=== PATIENT | female | born 1995 | race Caucasian/White ===

== ENCOUNTER 2017-01-17 10:45 | Inpatient (IN) | payer BC, MEDICAID ==
[~2017-01-17] VITALS: Ht 157.5 cm; Wt 105.0 kg
[~2017-01-17 10:45] MED LIST: AMOXICILLIN 50500 MG PO; BCP TD; PROVENTIL0.09 MG/A1 IH; RT ADVAIR 128 DISKUS IH; VENTOLIN0.09 MG IH
[2017-02-15] VITALS (8 sets, daily range): BP systolic 128–146; BP diastolic 61–74; PULSE 93–113; TEMP 98.3–98.7
[2017-02-15 19:41] LABS: BASO # 0.1 (0.0-0.2); BASO % 0.4 % (0.0-2.0); EOS # 0.2 (0.0-0.7); EOS % 1.4 % (0-4.0); GRAN # 11.2 (1.4-6.5); GRAN % 78.7 % (42.2-75.2); LYMPH % 14.1 % (20.0-51.0); MEAN CELL VOLUME 92 fl (80.0-100.0); MEAN CORPUSCULAR HGB CONC 33 g/dl (33.0-37.0); MEAN PLATELET VOLUME 12.7 fl (7.4-10.4); MONO # 0.7 (0.1-0.6); PLATELET COUNT 218 K/mm3 (130-400); RED BLOOD COUNT 3.79 M/mm3 (4.10-5.30); REDCELL DISTRIBUTION WIDTH-CV 14.3 % (11.5-14.5)
[2017-02-15 19:42] LABS: HEMOGLOBIN 11.7 g/dl (12.5-16.0); MEAN CORPUSCULAR HEMOGLOBIN 31 pg (27.0-31.0)
[2017-02-15 20:21] LABS: ALBUMIN 3.7 gm/dL (3.5-5.0); BILIRUBIN,TOTAL 0.2 mg/dL (0.0-1.0); CREATININE, serum 0.66 mg/dL (0.52-1.25); POTASSIUM 3.8 mmol/L (3.4-5.0); TOTAL PROTEIN 7.3 gm/dL (6.4-8.2)
[2017-02-15] MEDS ORDERED: ATARAX 25MG25 MG/TAB PO (20:49)
[2017-02-15] MEDS ORDERED: TRANDATE 100MG100 MG PO (20:50)
[2017-02-16] VITALS (63 sets, daily range): BP systolic 100–170; BP diastolic 49–96; PULSE 54–123; TEMP 98.1–98.7
[2017-02-17] VITALS (33 sets, daily range): BP systolic 114–162; BP diastolic 40–84; PULSE 77–107; TEMP 97.8–98.6
[2017-02-18 08:07] LABS: HEMATOCRIT 27.9 % (37.0-47.0); HEMOGLOBIN 9.2 g/dl (12.5-16.0)
[2017-02-18 09:00] VITALS: BP 134/59; PULSE 85; TEMP 97.4
[2017-02-18 16:30] VITALS: BP 129/58; PULSE 77; TEMP 97.5
[2017-02-18 21:15] VITALS: BP 127/54; PULSE 85; TEMP 98.3
[2017-02-19 06:45] VITALS: BP 132/61; PULSE 88; TEMP 98.5
[2017-02-19] MEDS ORDERED: FERROUS SU325 MG/TAB PO (08:43)
[2017-02-19] MEDS ORDERED: IBU600 MG PO (08:44)
[2017-02-19] MEDS ORDERED: PERCOCET 325 MG1 TA2 PO (08:44)
[2017-02-19 16:00] VITALS: BP 136/56; PULSE 76; TEMP 98.1
[2017-02-19 20:00] VITALS: BP 133/68; PULSE 84; TEMP 98
[2017-02-20 08:24] VITALS: BP 131/68; PULSE 89; TEMP 97.6
[2017-02-20 16:27] VITALS: BP 125/71; PULSE 70; TEMP 98.3
== END 2017-02-20 18:00 | disposition home or self-care (01) | DRG 765 ==
LOC: LDR 02-15 06:53 → OB 02-15 18:06 → LDR 02-15 18:30 → OB 02-17 06:40 → LDR 02-22 10:44
PROVIDERS: Obstetrics & Gynecology
PROC: 10D00Z1 Extraction of Products of Conception, Low, Open Approach (ICD-10-PCS; principal; 2017-02-17)
PROC: 3E033VJ Introduction of Other Hormone into Peripheral Vein, Percutaneous Approach (ICD-10-PCS; 2017-02-17)
DX: O13.4 Gestational [pregnancy-induced] hypertension without significant proteinuria, complicating childbirth (principal); D62 Acute posthemorrhagic anemia; O99.02 Anemia complicating childbirth; O62.1 Secondary uterine inertia; O99.334 Smoking (tobacco) complicating childbirth; F17.210 Nicotine dependence, cigarettes, uncomplicated; Z3A.39 39 weeks gestation of pregnancy; Z37.0 Single live birth
CPT/HCPCS: J0690; J1885; J2270; J2405; J2590; J2704; J3010; J7120

== ENCOUNTER → 2017-05-17 | Outpatient (CLI) | payer BC, MEDICAID ==
[~2017-05-17] MED LIST changes: +ATARAX 25MG25 MG/TAB PO; +FERROUS SU325 MG/TAB PO; +IBU600 MG PO; +PERCOCET 325 MG1 TA2 PO; +TRANDATE 100MG100 MG PO
== END ==
LOC: OLC 14:13
DX: Z39.1 Encounter for care and examination of lactating mother (principal); Z71.89 Other specified counseling

== ENCOUNTER 2018-05-10 14:25 | Emergency (ER) | payer MEDICAID ==
[~2018-05-10] VITALS: Ht 154.9 cm; Wt 96.8 kg
[2018-05-10 14:44] VITALS: TEMP 98.9
[2018-05-10] MEDS ORDERED: ATARAX 25MG25 MG/TAB PO (14:58)
[2018-05-10 15:49] LABS: BASO # 0.1 (0.0-0.2); BASO % 0.7 % (0.0-2.0); EOS # 0.3 (0.0-0.7); EOS % 2.9 % (0-4.0); GRAN # 6.7 (1.4-6.5); GRAN % 65.2 % (42.2-75.2); HEMATOCRIT 38.3 % (37.0-47.0); LYMPH # 2.6 (1.2-3.4); LYMPH % 25.4 % (20.0-51.0); MEAN CELL VOLUME 90 fl (80.0-100.0); MEAN CORPUSCULAR HEMOGLOBIN 30 pg (27.0-31.0); MEAN CORPUSCULAR HGB CONC 34 g/dl (33.0-37.0); MONO # 0.6 (0.1-0.6); MONO % 5.5 % (1.7-9.3); PLATELET COUNT 287 K/mm3 (130-400); RED BLOOD COUNT 4.27 M/mm3 (4.10-5.30); REDCELL DISTRIBUTION WIDTH-CV 11.9 % (11.5-14.5)
[2018-05-10 16:24] LABS: BILIRUBIN,TOTAL 0.2 mg/dL (0.0-1.0); CALCIUM 9.4 mg/dL (8.4-10.2); CREATININE, serum 0.62 (0.52-1.25); TOTAL PROTEIN 7.5 gm/dL (6.4-8.2)
[2018-05-10 17:20] VITALS: BP 142/84; PULSE 72
== END 2018-05-10 17:22 | disposition home or self-care (01) ==
LOC: COL.ER 14:25
PROVIDERS: Physician Assistant
DX: R06.02 Shortness of breath (principal); F41.9 Anxiety disorder, unspecified; J45.909 Unspecified asthma, uncomplicated; Z79.51 Long term (current) use of inhaled steroids; Z98.890 Other specified postprocedural states

== ENCOUNTER 2018-05-17 22:39 | Emergency (ER) | payer MEDICAID ==
[~2018-05-17] VITALS: Ht 154.9 cm; Wt 96.4 kg
[2018-05-17 22:51] VITALS: TEMP 97.7
[2018-05-18 02:00] VITALS: BP 128/76; PULSE 76
== END 2018-05-18 02:00 | disposition home or self-care (01) ==
LOC: COL.ER 22:39
DX: J02.9 Acute pharyngitis, unspecified (principal); J30.2 Other seasonal allergic rhinitis; F41.9 Anxiety disorder, unspecified; J45.909 Unspecified asthma, uncomplicated; F17.210 Nicotine dependence, cigarettes, uncomplicated; Z79.51 Long term (current) use of inhaled steroids
CPT/HCPCS: J8540

== ENCOUNTER 2020-05-29 15:02 | Outpatient (CLI) | payer MEDICAID ==
[~2020-05-29] VITALS: Ht 157.5 cm; Wt 89.1 kg
--- NOTE | 2020-05-29 15:15 | NUR ---
1515-G3L1 26 Week patient to unit with complaints of lower back pain and burning and swelling in vagina. Patient reports just finishing up 6 week treatment for BV. Reports having had BV 4 times this . Assisted to gown and placed on EFM. FHR reactive. VSS, SVE by this RN closed and thick. External labia without reddness, inner labia reddened. Updated Dr. Blancas who is on unit. Orders to obtain reactive strip and encourage to treat pain at home with sitz baths and tylenol and allow treatment to run its full course MD reports can take up to a week after final dosing. Updtaed patient and encouraged to keep all regular OB visits. 1551-Patient off EFM. Reviewed discharge instructions with patient and answered questions. 1605-Ambulatory off unit.
[2020-05-29 15:30] VITALS: BP 118/58; PULSE 94; TEMP 98.1
[2020-05-29] MEDS ORDERED: PRENATAL TABLET PO (15:30)
[2020-05-29] MEDS ORDERED: ASPIRIN 81M81 MG/TA2 PO (15:30)
[2020-05-29] MEDS ORDERED: PROBIOTIC ACID1 EAC3 PO (15:31)
[2020-05-29] MEDS ORDERED: PROAIR HFA0.09 MG/AC IH (15:31)
[2020-05-29] MEDS ORDERED: PRILOSEC 20MG20 MG PO (15:32)
== END 2020-05-29 16:05 | disposition home or self-care (01) ==
LOC: LDRO 15:02
DX: O26.892 Other specified pregnancy related conditions, second trimester (principal); R10.2 Pelvic and perineal pain; Z3A.28 28 weeks gestation of pregnancy

== ENCOUNTER 2020-07-23 16:10 | Outpatient (CLI) | payer MEDICAID ==
[~2020-07-23] VITALS: Ht 157.5 cm; Wt 92.7 kg
[~2020-07-23 16:10] MED LIST changes: +ASPIRIN 81M81 MG/TA2 PO; +PRENATAL TABLET PO; +PRILOSEC 20MG20 MG PO; +PROAIR HFA0.09 MG/AC IH; +PROBIOTIC ACID1 EAC3 PO
[2020-07-23 16:45] VITALS: BP 116/69; PULSE 80; TEMP 97.7
--- NOTE | 2020-07-23 17:56 | NUR ---
FHT STRIP: DIFFICULTY TRACING FHT FROM ~6176-0616 DUE TO MOVEMENT. RN AT BS ADJUSTING EXTERNAL US AND MOVEMENT AUDIBLE. 1730 STRIP: BROKEN STRIP NOTED DUE TO MOVEMENT.
--- NOTE | 2020-07-23 17:58 | NUR ---
TRIAGE NOTE: PT. ARRIVED ONTO [facility] UNIT AMBULATORY WITH NO DIFFICULTIES BUT DID LOOK UNCOMFORTABLE. PT ESCORTED TO [facility] WITH THIS RN AND CHANGED INTO GOWN AND WAS PLACED ON MONITORS. VITAL SIGNS WERE OBTAINED AND WNL (SEE CHART) AND SVE WAS .5/TH/HI. ADMISSION TABS WERE COMPLETED WITH PT AND PT. HAD NO QUESTIONS. PHONE CALL WAS PLACED TO DR. HORNER FOR DR. CAPUTO, AND STATED TO MONITOR STRIP FOR AN HOUR AND RECHECK. IF UNCHANGED, PT. CAN GO HOME.
== END 2020-07-23 18:40 | disposition home or self-care (01) ==
LOC: LDRO 16:10
DX: O62.9 Abnormality of forces of labor, unspecified (principal); Z3A.00 Weeks of gestation of pregnancy not specified

== ENCOUNTER 2020-08-20 05:29 | Inpatient (IN) | payer MEDICAID ==
[2020-08-20] VITALS (18 sets, daily range): BP systolic 103–133; BP diastolic 40–66; PULSE 79–113; TEMP 97.5–98.6
[~2020-08-20] VITALS: Ht 157.5 cm; Wt 97.7 kg
[2020-08-20 06:30] LABS: BASO # 0.1 (0.0-0.2); BASO % 0.4 % (0.0-2.0); EOS # 0.1 (0.0-0.7); EOS % 1.2 % (0-4.0); GRAN # 8.8 (1.4-6.5); GRAN % 73.9 % (42.2-75.2); HEMOGLOBIN 10.7 g/dl (12.5-16.0); LYMPH # 2.1 (1.2-3.4); LYMPH % 17.8 % (20.0-51.0); MEAN CELL VOLUME 89 fl (80.0-100.0); MEAN CORPUSCULAR HEMOGLOBIN 29 pg (27.0-31.0); MEAN CORPUSCULAR HGB CONC 33 g/dl (33.0-37.0); MEAN PLATELET VOLUME 11.9 fl (7.4-10.4); MONO # 0.8 (0.1-0.6); MONO % 6.4 % (1.7-9.3); PLATELET COUNT 181 K/mm3 (130-400); RED BLOOD COUNT 3.64 M/mm3 (4.10-5.30); REDCELL DISTRIBUTION WIDTH-CV 12.8 % (11.5-14.5)
--- NOTE | 2020-08-20 06:30 | NUR ---
39.6, G3L1 here for scheduled repeat section. Report received from Paula STEIN. This RN to bedside and reviews POC. Assessment completed. Abdominal prep per orders. IVF noted to be infusing well through right wrist IV.
[2020-08-20 06:36] LABS: HEMATOCRIT 32.5 % (37.0-47.0)
[2020-08-20] MEDS ORDERED: SLOW FE142 MG PO (06:39)
[2020-08-21 01:15] VITALS: BP 131/61; PULSE 91; TEMP 98.1
[2020-08-21 07:03] LABS: HEMOGLOBIN 10.2 g/dl (12.5-16.0)
[2020-08-21 07:20] VITALS: BP 124/65; PULSE 71; TEMP 97.7
[2020-08-21 07:21] LABS: HEMATOCRIT 30.9 % (37.0-47.0)
--- NOTE | 2020-08-21 12:25 | NUR ---
Striper Spray Gun stopped by offered prayer and congrats to patient.
[2020-08-21 16:35] VITALS: BP 115/52; PULSE 74; TEMP 97.3
--- NOTE | 2020-08-21 18:55 | NUR ---
notified pt of discussion with Dr. Domingo concerning use of friend's breastmilk for supplementation. Donor milk should be processed and tested prior to use, because this milk is from a friend we don't recommend its use. If you choose to use it you would have to accept responsibility for any poor outcome. Pt verbalized understanding and states this is only intending as a back up plan if necessary as she would like to avoid using formula. Frozen donor milk labeled with pt sticker and placed in freezer in the [facility].
[2020-08-21 20:00] VITALS: BP 126/60; PULSE 72; TEMP 97.6
[2020-08-22 08:50] VITALS: BP 130/56; PULSE 85; TEMP 97.7
[2020-08-22] MEDS ORDERED: PERCOCET 325 MG1 TA2 PO (09:42)
[2020-08-22] MEDS ORDERED: IBU600 MG PO (09:42)
== END 2020-08-22 11:20 | disposition home or self-care (01) | DRG 788 ==
LOC: OB
PROVIDERS: ADMIT Obstetrics & Gynecology
PROC: 10D00Z1 Extraction of Products of Conception, Low, Open Approach (ICD-10-PCS; principal; 2020-08-20)
DX: O34.211 Maternal care for low transverse scar from previous cesarean delivery (principal); Z3A.39 39 weeks gestation of pregnancy; Z37.0 Single live birth; F41.9 Anxiety disorder, unspecified; J45.909 Unspecified asthma, uncomplicated; E66.9 Obesity, unspecified; O99.824 Streptococcus B carrier state complicating childbirth; O99.52 Diseases of the respiratory system complicating childbirth; O99.02 Anemia complicating childbirth; D64.9 Anemia, unspecified; O99.214 Obesity complicating childbirth; Z71.3 Dietary counseling and surveillance; O99.344 Other mental disorders complicating childbirth; O99.62 Diseases of the digestive system complicating childbirth; K21.9 Gastro-esophageal reflux disease without esophagitis
CPT/HCPCS: J0690; J1100; J1885; J2405; J2590; J2765; J7120

== ENCOUNTER → 2021-08-04 | Outpatient (CLI) | payer OTHER, MEDICAID ==
[~2021-08-04] MED LIST changes: +SLOW FE142 MG PO
== END ==
LOC: MC.RAD 08:30
DX: N64.4 Mastodynia (principal)